=== PATIENT | female | born 1970 | race American Indian/Alaskan Native ===

== ENCOUNTER 2020-09-21 15:24 | Emergency (ER) | payer SELFPAY | END 2020-09-21 18:30 | disposition left against medical advice (07) | LOC: ED 15:24 | DX: I10 Essential (primary) hypertension (principal); Z53.21 Procedure and treatment not carried out due to patient leaving prior to being seen by health care provider ==

== ENCOUNTER 2021-11-11 20:19 | Emergency (ER) | payer SELFPAY ==
[2021-11-11 20:25] VITALS: BP 159/73
[2021-11-11] MEDS ORDERED: predniSONE 20 MG TAB PO ONE (21:45)
[2021-11-11] MEDS ORDERED: ALBUTEROL 2.5 MG/3 ML NEBU IH ONE (21:45)
[2021-11-11] MEDS ORDERED: IPRATROPIUM 0.02% NEBU 2.5 ML IH ONE (21:46)
--- NOTE | 2021-11-11 21:49 | Emergency Department Report ---
HPI - General Chief Complaint: Adult Asthma Time Seen by Provider: 11/11/21 21:32 - HPI HPI: 51-year-old -[place] female presents to the emergency department with a complaint of a 1 day history of wheezing, dry cough and some shortness of breath that she feels may be an asthma exacerbation. She does have a history of asthma but says that she has not had any symptoms of asthma or any asthma exacerbation since 2012. The patient also says that she may have had a 24-hour "bug" on Thursday, yesterday. She denies any other past medical history. She tried some home remedies without any relief. She does not have any albuterol inhaler or nebulizer at home to use. No recent travel or sick contacts at home. The patient is vaccinated against COVID-19 but did not get the flu shot. ED Past Medical Hx - Past Medical History Hx Asthma: Yes - Surgical History Additional Surgical History: fibroid surgery - Social History Smoking Status: Never Smoker Substance Use Type: Alcohol - Medications Home Medications: Home Medications Medication Instructions Recorded Confirmed Last Taken Type Ferrous Sulfate [Feosol 325 MG tab] 325 mg PO QDAY #20 tablet 08/09/16 Unknown Rx Albuterol Mdi (or & Nicu Only) 2 puff IH QID PRN #8.5 gram 11/11/21 Unknown Rx [ProAir HFA Inhaler] predniSONE [Deltasone] 20 mg PO QDAY #4 tab 11/11/21 Unknown Rx ED Review of Systems ROS: Stated complaint: ASTHMA Other details as noted in HPI Comment: All other systems reviewed and negative Constitutional: denies: chills, fever Eyes: denies: eye pain, vision change ENT: denies: ear pain Respiratory: cough, shortness of breath, wheezing Cardiovascular: denies: chest pain, edema Gastrointestinal: denies: abdominal pain, vomiting Genitourinary: denies: dysuria, discharge Musculoskeletal: denies: back pain, arthralgia Skin: denies: rash, lesions Neurological: denies: headache, weakness Physical Exam - Physical Exam Vital Signs: Vital Signs 11/11/21 20:22 Temperature 98.7 F Pulse Rate 83 Respiratory 20 Rate Blood Pressure 159/73 [Right] O2 Sat by Pulse 98 Oximetry Physical Exam: GENERAL: The patient is well-developed well-nourished. HENT: Normocephalic. Atraumatic. Patient has moist mucous membranes. EYES: Extraocular motions are intact. NECK: Supple. Trachea is midline. CHEST/LUNGS: Moderate expiratory wheezing, but the patient does appear restricted with inhalation. Mild tachypnea but no accessory muscle use. HEART/CARDIOVASCULAR: Regular. There is no tachycardia. There is no murmur. ABDOMEN: Abdomen is soft, nontender. Patient has normal bowel sounds. There is no abdominal distention. SKIN: Skin is warm and dry. NEURO: The patient is awake, alert, and oriented. The patient is cooperative. The patient has no focal neurologic deficits. Normal speech. MUSCULOSKELETAL: There is no tenderness or deformity. There is no limitation range of motion. ED Course Vital Signs 11/11/21 20:22 Temperature 98.7 F Pulse Rate 83 Respiratory 20 Rate Blood Pressure 159/73 [Right] O2 Sat by Pulse 98 Oximetry ED Medical Decision Making - Radiology Data Radiology results: image reviewed interpreted by me: Chest x-ray does not show any acute process. There are no pleural effusions, obvious pneumonia and there is no pneumothorax. No widened mediastinum. - Medical Decision Making This patient presents with some shortness of breath, wheezing and coughing that started earlier today. On examination she has moderate expiratory wheezing but does not appear in any respiratory distress. Chest x-ray does not show any pneumonia, pleural effusions, pneumothorax, widened mediastinum, or any other acute process. Patient was given a dose of prednisone and a DuoNeb breathing treatment with albuterol and Atrovent. Upon reevaluation she is feeling greatly improved. There is only a very mild residual expiratory wheeze heard. Vital signs reassuring including being afebrile and no hypoxia. For all these reasons patient appears safe for discharge home. She will be given an albuterol i nhaler and a course of steroids. She will return to the emergency department with any worsening of her symptoms or with any acute distress. Critical Care Time: No Critical care attestation.: If time is entered above; I have spent that time in minutes in the direct care of this critically ill patient, excluding procedure time. ED Disposition Clinical Impression: Bronchospasm Asthma exacerbation Qualifiers: Asthma severity: unspecified severity Asthma persistence: unspecified Qualified Code(s): J45.901 - Unspecified asthma with (acute) exacerbation Disposition: HOME / SELF CARE / HOMELESS Is pt being admited?: No Condition: Stable Instructions: Bronchospasm, Adult, Asthma Attack Additional Instructions: Please follow-up with a primary care physician in the next few days. Return to the emergency department with any worsening of your symptoms, new or concerning symptoms not addressed during this current emergency department visit, or with any acute distress. Prescriptions: predniSONE [Deltasone] 20 mg PO QDAY #4 tab Albuterol Mdi (or & Nicu Only) [ProAir HFA Inhaler] 2 puff IH QID PRN #8.5 gram PRN Reason: Shortness Of Breath Referrals: MERI MAIER MD [Staff Physician] - 3-[address] [facility] [Provider Group] - 3-5 Days Time of Disposition: 23:12
--- NOTE | 2021-11-11 22:59 | XRay Report ---
XR chest routine 2V INDICATION / CLINICAL INFORMATION: sob. COMPARISON: None available. FINDINGS: SUPPORT DEVICES: None. HEART /PULMONARY VASCULATURE: No significant abnormality. LUNGS / PLEURA: No significant pulmonary or pleural abnormality. No pneumothorax. ADDITIONAL FINDINGS: No significant additional findings. IMPRESSION: 1. No acute findings. Signer Name: Justin Isaacs MD Signed: 11/11/2021 10:55 PM Workstation Name: [id number]
== END 2021-11-11 23:25 | disposition home or self-care (01) ==
LOC: ED 20:19
DX: J45.901 Unspecified asthma with (acute) exacerbation (principal)
CPT/HCPCS: 71046; 99283; J7512; 94644

== ENCOUNTER 2022-03-19 16:24 | Emergency (ER) | payer SELFPAY ==
[2022-03-19 16:34] VITALS: BP 137/88
[2022-03-19] MEDS ORDERED: methylPREDNISolone Sod Succinate 125 MG/2 ML INJ IM ONE (17:28)
[2022-03-19] MEDS ORDERED: IPRATROPIUM 0.02% NEBU 2.5 ML IH ONE (17:28)
[2022-03-19] MEDS ORDERED: ALBUTEROL 2.5 MG/3 ML NEBU IH ONE (17:28)
--- NOTE | 2022-03-19 17:54 | XRay Report ---
CHEST 1 VIEW 03/19/2022 4:48 PM INDICATION / CLINICAL INFORMATION: asthma, dyspnea. COMPARISON: 11/11/2021. FINDINGS: SUPPORT DEVICES: None. HEART / MEDIASTINUM: No significant abnormality. LUNGS / PLEURA: No significant pulmonary or pleural abnormality. No pneumothorax. ADDITIONAL FINDINGS: No significant additional findings. IMPRESSION: No acute abnormality. Signer Name: Sean Rodriguez MD Signed: 03/19/2022 5:50 PM Workstation Name: [id number]
--- NOTE | 2022-03-19 19:39 | Emergency Department Report ---
ED Shortness of Breath HPI - General Chief Complaint: Dyspnea/Respdistress Stated Complaint: BREATHING TREATMENT Source: patient Mode of arrival: Ambulatory Limitations: No Limitations - History of Present Illness Initial Comments: Patient is a 51-year-old -[place] female with a history of asthma who presents to the ED with complaint of acute onset persistent shortness of breath, dry cough, wheezing for the last 3 days after exposure to animal hair and pollen. Patient states that she has been using her albuterol inhaler at home with no relief. Patient states that it has been over 13 years since she got asthma attack and therefore does not have any albuterol nebulizer in the house. Patient denies dizziness, syncope, fever, chills, nausea and vomiting, chest pa in, abdominal pain, headache, lightheadedness, palpitations, sore throat, nasal and sinus congestion. MD Complaint: shortness of breath, cough, "asthma attack" -: Sudden, days(s) (3) Severity: moderate Pain Scale: 4 Quality: other (Chest tightness) Consistency: constant Improves With: nothing Worsens With: nothing Known History Of: asthma Context: recent URI, allergen exposure Associated Symptoms: cough Treatments Prior to Arrival: bronchodilator - Related Data Home Oxygen Therapy: No Previous Rx's Medication Instructions Recorded Last Taken Type Ferrous Sulfate [Feosol 325 MG tab] 325 mg PO QDAY #20 tablet 08/09/16 Unknown Rx Albuterol Mdi (or & Nicu Only) 2 puff IH QID PRN #8.5 gram 11/11/21 Unknown Rx [ProAir HFA Inhaler] predniSONE [Deltasone] 20 mg PO QDAY #4 tab 11/11/21 Unknown Rx Benzonatate [Tessalon Perles] 100 mg PO Q8HR #30 cap 03/19/22 Unknown Rx Cetirizine HCl [Zyrtec 10mg tab] 10 mg PO DAILY #30 tab 03/19/22 Unknown Rx methylPREDNISolone [Medrol 4MG 4 mg PO DAILY #21 tab 03/19/22 Unknown Rx DOSEPAK (21 tabs)] Allergies Allergy/AdvReac Type Severity Reaction Status Date / Time flu shot Allergy Unknown Uncoded 08/08/16 16:27 ED Review of Systems ROS: Stated complaint: BREATHING TREATMENT Other details as noted in HPI Constitutional: denies: chills, fever Eyes: denies: eye pain, eye discharge, vision change ENT: congestion. denies: ear pain, throat pain Respiratory: cough, shortness of breath, wheezing Cardiovascular: denies: chest pain, palpitations Endocrine: no symptoms reported Gastrointestinal: denies: abdominal pain, nausea, diarrhea Genitourinary: denies: urgency, dysuria, discharge Musculoskeletal: denies: back pain, joint swelling, arthralgia Skin: denies: rash, lesions Neurological: denies: headache, weakness, paresthesias Psychiatric: denies: anxiety, depression Hematological/Lymphatic: denies: easy bleeding, easy bruising ED Past Medical Hx - Past Medical History Previous Medical History?: Yes Hx Asthma: Yes - Surgical History Additional Surgical History: fibroid surgery - Social History Smoking Status: Never Smoker Substance Use Type: None - Medications Home Medications: Home Medications Medication Instructions Recorded Confirmed Last Taken Type Ferrous Sulfate [Feosol 325 MG tab] 325 mg PO QDAY #20 tablet 08/09/16 Unknown Rx Albuterol Mdi (or & Nicu Only) 2 puff IH QID PRN #8.5 gram 11/11/21 Unknown Rx [ProAir HFA Inhaler] predniSONE [Deltasone] 20 mg PO QDAY #4 tab 11/11/21 Unknown Rx Benzonatate [Tessalon Perles] 100 mg PO Q8HR #30 cap 03/19/22 Unknown Rx Cetirizine HCl [Zyrtec 10mg tab] 10 mg PO DAILY #30 tab 03/19/22 Unknown Rx methylPREDNISolone [Medrol 4MG 4 mg PO DAILY #21 tab 03/19/22 Unknown Rx DOSEPAK (21 tabs)] ED Physical Exam - General Limitations: No Limitations General appearance: alert, in no apparent distress - Head Head exam: Present: atraumatic, normocephalic, normal inspection - Eye Eye exam: Present: normal appearance, PERRL, EOMI Pupils: Present: normal accommodation - ENT ENT exam: Present: normal exam, normal orophraynx, mucous membranes moist, TM's normal bilaterally, normal external ear exam - Neck Neck exam: Present: normal inspection, full ROM. Absent: tenderness - Respiratory Respiratory exam: Present: wheezes (Mildly diffuse coarse wheezes throughout). Absent: respiratory distress, rales, rhonchi, chest wall tenderness, accessory muscle use, decreased breath sounds - Cardiovascular Cardiovascular Exam: Present: regular rate, normal rhythm, normal heart sounds. Absent: systolic murmur, diastolic murmur, rubs, gallop - GI/Abdominal GI/Abdominal exam: Present: soft, normal bowel sounds. Absent: tenderness, guarding, rebound, hyperactive bowel sounds, hypoactive bowel sounds, organomegaly - Extremities Exam Extremities exam: Present: normal inspection, full ROM, normal capillary refill - Back Exam Back exam: Present: normal inspection, full ROM. Absent: tenderness, CVA tenderness (R), CVA tenderness (L), muscle spasm, paraspinal tenderness, vertebral tenderness - Neurological Exam Neurological exam: Present: alert, oriented X3, CN II-XII intact, normal gait, reflexes normal - Psychiatric Psychiatric exam: Present: normal affect, normal mood - Skin Skin exam: Present: warm, dry, intact, normal color. Absent: rash ED Course Vital Signs 03/19/22 03/19/22 03/19/22 16:31 17:35 18:19 Temperature 98.3 F Pulse Rate 97 H Pulse Rate [ 100 H Bilateral] Respiratory 20 20 Rate Respiratory 20 Rate [Bilateral ] Blood Pressure 137/88 O2 Sat by Pulse 97 97 Oximetry ED Medical Decision Making - Radiology Data Radiology results: report reviewed, image reviewed [facility] [address] [place] [address] XRay Report Signed Patient: HELENE DELGADO MR#: [id number] 19 : 1970 Acct:[id number] Age/Sex: 51 / F ADM Date: 03/19/22 Loc: ED Attending Dr: Ordering Physician: WENDY MELTON Date of Service: 03/19/22 Procedure(s): XR chest 1V ap Accession Number(s): [id number] cc: WENDY MELTON Fluoro Time In Minutes: CHEST 1 VIEW 03/19/2022 4:48 PM INDICATION / CLINICAL INFORMATION: asthma, dyspnea. COMPARISON: 11/11/2021. FINDINGS: SUPPORT DEVICES: None. HEART / MEDIASTINUM: No significant abnormality. LUNGS / PLEURA: No significant pulmonary or pleural abnormality. No pneumothorax. ADDITIONAL FINDINGS: No significant additional findings. IMPRESSION: No acute abnormality. Signer Name: Sean Rodriguez MD Signed: 03/19/2022 5:50 PM Workstation Name: [id number] Transcribed By: ES Dictated By: Sean Rodriguez MD Electronically Authenticated By: Sean Rodriguez MD Signed Date/Time: 03/19/221749 DD/ 48 TD/TT: Print - Medical Decision Making This is a 51-year-old -[place] female with a history of asthma who presents to the ED with complaint of acute onset persistent shortness of breath, dry cough, wheezing for the last 3 days after exposure to animal hair and pollen. Patient states that she has been using her albuterol inhaler at home with no relief. Patient states that it has been over 13 years since she got asthma attack and therefore does not have any albuterol nebulizer in the house. In the ED, patient is alert and oriented x3 and is not in any distress. Patient received DuoNeb treatment for 1 hour, and also received Solu-Medrol 125 mg intramuscular injection. The chest x-ray showed no acute cardiopulmonary abnormalities or pneumonitis. On reevaluation, patient wheezing resolved, oxygen saturation is 99- 100% on room air. Patient was discharged home on medications and advised to follow-up with her primary care physician in 7 to 10 days for reevaluation. Patient was advised to return to the ED immediately if symptoms get worse. - Differential Diagnosis Asthma; bronchitis; URI; rhinitis Critical care attestation.: If time is entered above; I have spent that time in minutes in the direct care of this critically ill patient, excluding procedure time. ED Disposition Clinical Impression: Shortness of breath Asthmatic bronchitis with acute exacerbation Qualifiers: Asthma severity: mild Asthma persistence: intermittent Qualified Code(s): J45.21 - Mild intermittent asthma with (acute) exacerbation Disposition: 01 HOME / SELF CARE / HOMELESS Is pt being admited?: No Does the pt Need Aspirin: No Condition: Stable Instructions: Shortness of Breath, Adult, [id number], Cough, Adult, [id number], Asthma, Adult, [id number] Additional Instructions: Chest x-ray showed no acute cardiopulmonary abnormalities or pneumonitis. Therefore take medications as advised, drink plenty of fluids and follow-up with your primary care physician in 7 to 10 days for reevaluation. Return to the ED immediately if symptoms get worse. Prescriptions: methylPREDNISolone [Medrol 4MG DOSEPAK (21 tabs)] 4 mg PO DAILY #21 tab Benzonatate [Tessalon Perles] 100 mg PO Q8HR #30 cap Cetirizine HCl [Zyrtec 10mg tab] 10 mg PO DAILY #30 tab Referrals: MERI MAIER MD [Staff Physician] - 3-5 Days Forms: Work/School Release Form(ED) Time of Disposition: 19:39 Print Language: CITIZEN OF [place]
== END 2022-03-19 20:32 | disposition home or self-care (01) ==
LOC: ED 16:24
DX: J45.901 Unspecified asthma with (acute) exacerbation (principal); R06.02 Shortness of breath; Z91.09 Other allergy status, other than to drugs and biological substances
CPT/HCPCS: 71045; 94640; 96372; 99283; J2930; 94644